=== PATIENT | female | born 2000 | race Caucasian/White ===

== ENCOUNTER → 2022-04-12 | Outpatient (CLI) | payer OTHER, SELFPAY ==
[2022-04-18 22:47] LABS: HPV Reflexed? NOT INDICATED
== END | disposition home or self-care (01) ==
LOC: LABSPEC 14:25
PROVIDERS: PCP Pediatrics; Visit Provider Obstetrics & Gynecology
DX: Z12.4 Encounter for screening for malignant neoplasm of cervix (principal)
CPT/HCPCS: 88175; G0145

== ENCOUNTER 2023-10-04 02:06 | Emergency (ER) | payer OTHER, SELFPAY ==
[2023-10-04 02:06] VITALS: BP 110/68; PULSE 87; RESP 18; TEMP 36.6; O2SAT 99; BMI 27.9
[2023-10-04 02:11] VITALS: BP 110/68; PULSE 88; RESP 14; TEMP 36.6; O2SAT 99
--- NOTE | 2023-10-04 02:32 | EDS_ITS ---
HPI History of Present Illness Chief Complaint: Dizziness Informant: patient and family Narrative Narrative: Patient is a 23-year-old female with past medical history of depression and ADHD who recently was admitted to the hospital approximately 10 days ago for acute appendicitis. She states she has been doing well but 5 days ago she was stung by a insect such as a bee or hornet in the right shoulder. She states that initially it was swollen and pruritic and she was scratching at it but now its become painful. She denies any fevers or chills nausea vomiting diarrhea or dysuria or concern for . She denies any acute blood loss. She states that she have to use the bathroom this evening and felt lightheaded/dizzy and she relates this to the increasing pain in her shoulder. With concern for secondary infection she presents for evaluation [facility] Medical History Depression ADHD Tonsillectomy planned Home Medications ?Medication ?Instructions ?Recorded ?Last Taken ?Type dextroamphetamine-amphetamine 5 mg 10 mg PO DAILY 09/22/23 Unknown History tablet (Adderall) sertraline 20 mg/mL oral 20 mg PO DAILY 09/22/23 Unknown History concentrate (Zoloft) oxycodone 5 mg tablet 5 - 10 mg (1 - 2 x 5 mg) PO Q4H 09/23/23 Unknown Rx PRN PRN Pain Score 4-10 5 days #20 tabs amoxicillin 875 mg-potassium 1 tab PO BID 7 days #14 tabs 10/04/23 Unknown Rx clavulanate 125 mg tablet drospirenone 3 mg-ethinyl 1 tab PO DAILY 10/04/23 Unknown History estradiol 0.02 mg tablet (JOSE E (28)) Allergy/AdvReac Type Severity Reaction Status Date / Time No Known Allergies Allergy Verified 10/04/23 02:06 Surgical History (Updated 09/22/23 @ 16:[address] Silvio Au MD) S/P right knee arthroscopy History of tonsillectomy Social History Smoking Status: Never smoker ROS ROS ED Constitutional Constitutional ED: Denies chills or fever(s) ENT ENT ED: Denies sore throat Cardiovascular Cardiovascular: Reports other Details: Positive dizziness/near syncope ; Denies chest pain Respiratory/Chest Respiratory/Chest: Denies cough or dyspnea Gastrointestinal Gastrointestinal: Denies abdominal pain, diarrhea, nausea or vomiting Genitourinary Genitourinary ED: Denies dysuria Musculoskeletal Musculoskeletal: Reports other Details: Positive right shoulder pain Integumentary Reports abscess Neurologic Neurologic: Denies headache(s) Hematologic/Lymphatic Hematologic/Lymphatic: Denies easy bleeding or easy bruising Allergic/Immunologic Allergic/Immunologic ED: Denies urticaria EXAM Physical Exam Const Vital Signs: 10/04/23 02:06 10/04/23 02:11 10/04/23 03:11 Temperature 97.9 F 97.9 F 97.9 F Temperature Source Temporal Temporal Temporal Pulse Rate 87 88 74 Respiratory Rate 18 14 16 Blood Pressure 110/68 110/68 111/65 Blood Pressure Mean 82 82 80 Pulse Ox 99 99 100 Oxygen Delivery Method Room Air Room Air Room Air Positive well nourished and well developed General Appearance ED: well developed HEENT Reports dry mucous membranes HEENT Narrative: Mucous membranes are dry and tacky without tongue or lip swelling oral lesions airway edema or compromise No secondary changes in the posterior pharynx to suggest infection Mouth ED: Yes dry mucous membranes Mouth: dry mucous membranes Eyes PERRL and EOMs intact bilaterally General Eye ED: Negative for pale conjunctiva or scleral icterus Neck supple Neck Narrative: No nuchal rigidity or meningeal signs noted Resp normal respiratory effort and clear to auscultation bilaterally Cardio regular rate and regular rhythm Rate: other Other Details: Heart is regular rate and rhythm without murmurs rubs or gallop Radial and carotid pulses are equal and symmetric No ectopy noted GI non-tender and non-distended GI Narrative: Abdomen is soft nontender nondistended with hypoactive bowel sounds Patient has incisions secondary to her previous surgery that are clean dry and intact without secondary changes to suggest infection. Auscultation: hypoactive bowel sounds Palpation: soft Extremity normal to inspection Extremity Narrative: No asymmetric edema no pitting edema negative Homans' sign bilaterally Neuro oriented x3, CN's II-XII intact bilaterally and no sensory deficits noted Neuro Narrative: Cranial nerves II through XII are grossly intact there are no focal neurologic deficits No pronator drift no dysmetria no truncal ataxia NIH stroke scale score of 0 Sensorium / Orientation: alert Motor Exam: strength 5/5 throughout Psych mental status grossly normal Skin Skin Narrative: Patient has asymmetric erythema and warmth to the upper posterior section of her right shoulder. This area encompasses roughly 2 x 3 cm. In the center there is a small 1-1/2 cm circular region that is raised and indurated concerning for developing abscess. No active discharge or drainage or lymphangitic streaking noted. MDM MDM MDM Narrative Medical decision making narrative: Patient arrived to the ER with stable vitals. She reported a lightheadedness/near syncopal event when getting up to use the bathroom but ported it was secondary to pain. Differential diagnosis is for orthostatic hypotension versus cardiac dysrhythmia versus electrolyte abnormality versus acute blood loss anemia versus acute kidney injury. Physical exam shows abscess with cellulitis of the right shoulder region. In order to ensure there are no signs of systemic infection and that there are no other causes for the patient's near syncopal event basic laboratory studies were obtained. Patient's white count is elevated but otherwise her no clinically significant finding. Therefore this time with stable vitals and only elevation to her white count she does not meet septic criteria. Patient does not require inpatient treatment and to be given 1 dose of IV antibiotics and placed on oral antibiotics for home. The abscess was incised and drained as document below and following this patient is otherwise safe for discharge Patient had the right shoulder cleaned with chlorhexidine. It was anesthetized with 8 mL of 2% lidocaine with epinephrine and local fashion. A #11 blade was used to make a 1 cm incision over top the area of induration. A moderate amount of blood and purulent material was expressed. Loculations were dissected with a needle connolly. The wound was copiously irrigated with normal saline. Then half-inch iodoform gauze was packed into the wound. Patient tolerated the procedure well without complication History & Record Review Discussion w/independent historian: Patient and Family Lab Data Attestation: I reviewed the patient's lab results. Labs: Laboratory Results - last 24 hr 10/04/23 02:55 WBC 13.4 H RBC 4.43 Hgb 12.5 Hct 39.0 MCV 88.0 MCH 28.2 MCHC 32.1 RDW Std Deviation 41.1 RDW Coeff of Angel 12.7 Plt Count 295 MPV 9.5 Immature Gran % (Auto) 0.300 Neut % (Auto) 66.9 Lymph % (Auto) 25.1 Frio % (Auto) 5.7 Eos % (Auto) 1.5 Baso % (Auto) 0.5 Absolute Neuts (auto) 8.9 H Absolute Lymphs (auto) 3.35 Nucleated RBC % 0 Sodium 139 Potassium 4.1 Chloride 107 Carbon Dioxide 25.0 Anion Gap 7 BUN 13 Creatinine 0.90 Estim Creat Clear Calc 90.03 Est GFR (MDRD) Af Amer 99 Est GFR (MDRD) Non-Af 82 BUN/Creatinine Ratio 14.4 Glucose 115 H Calcium 9.1 Magnesium 1.9 Discharge Plan Triage Chief Complaint: Dizziness ED Provider: Louis Rose Dx/Rx/DC Orders Clinical Impression: Abscess, Cellulitis, ADHD, Depression Instructions: ED Abscess Incision And Drainage, ED Cellulitis Prescriptions: New amoxicillin-pot clavulanate 875-125 mg tablet 1 tab PO BID 7 Days Qty: 14 0RF No Action dextroamphetamine-amphetamine [Adderall] 5 mg tablet 10 mg PO DAILY sertraline [Zoloft] 20 mg/mL concentrate 20 mg PO DAILY oxycodone 5 mg Tablet 5 - 10 mg PO Q4H PRN PRN (Reason: Pain Score 4-10) 5 Days Qty: 20 0RF drospirenone-ethinyl estradiol [JOSE E (28)] 3-0.02 mg tablet 1 tab PO DAILY Primary Care Provider: Rosanna Granda NP Referrals: Rosanna Granda NP, PHOTO TECHNOLOGIST-C [Primary Care Provider] - Activity Restrictions/Additional Instructions: Please take your antibiotic as directed to resolve any remaining infection. Remove the packing in 48 to 72 hours. Please return to the ER should you have any further concerns or worsening of symptoms Print Language: Luxembourgish Disposition Disposition: Home, Self Care
[2023-10-04] MEDS: 0.9% Normal Saline (1000mL) 1,000 ML 999 ML IV (02:48)
[2023-10-04] MEDS: Piperacil/Tazobactam 3.375 GM in 0.9% Normal Saline (50mL MB+) 50 ML IV (02:48)
[2023-10-04] MEDS: Ondansetron 4 MG/2 ML Vial IV (02:48)
[2023-10-04] MEDS: Morphine 4 MG/ML Syringe IV (02:48)
[2023-10-04 03:01] LABS: Absolute Lymphocyte Count 3.35 X10^3/uL (0.83-4.51); Absolute Neutrophil Count 8.9 X10^3/uL (2.0-7.7); Basophil# 0.07 X10^3/uL; Basophil% 0.5 % (0-1); Eosinophils% 1.5 % (0-5); Hemoglobin 12.5 g/dL (12.0-15.0); Lymphocyte # 3.35 X10^3/ul (0.83-4.51); Lymphocyte % 25.1 % (19-41); Mean Corp Hgb Conc 32.1 g/dL (32-36); Mean Corpuscular Hgb 28.2 pg (27.0-32.0); Mean Platelet Vol. 9.5 fl (6.2-12.0); Monocyte# 0.76 X10^3/uL; Monocyte% 5.7 % (0-10); NRBC Flagged by Analyzer 0 % (0-5); Neutrophil # 8.94 X10^3/uL (2.7-7.7); Neutrophil % 66.9 % (47-70); Platelet Count 295 K/mm3 (150-450); RBC Distribution Width CV 12.7 % (11.6-14.6); RBC Distribution Width SD 41.1 fl (35.1-43.9); Red Blood Count 4.43 M/mm3 (4.2-5.4); White Blood Count 13.4 K/mm3 (4.4-11.0)
[2023-10-04 03:11] VITALS: BP 111/65; PULSE 74; RESP 16; TEMP 36.6; O2SAT 100
[2023-10-04 03:14] LABS: Anion Gap 7 (5-15); BUN 13 mg/dL (7-18); BUN/Creat Ratio 14.4 RATIO (10-20); Calcium,Total 9.1 mg/dL (8.5-10.1); Chloride 107 mmol/L (98-107); EST Glomerular Filtration Rate 82 mL/min (>60); Est Glom Filt Rate - Afr Amer 99 mL/min (>60); Estimated Creatinine Clearance 90.03 ml/min; Glucose 115 mg/dL (74-106); Magnesium 1.9 mg/dL (1.6-2.6); Potassium 4.1 mmol/L (3.5-5.1); Sodium Level 139 mmol/L (136-145)
[2023-10-04 04:00] VITALS: BP 106/63; PULSE 83; RESP 18; TEMP 36.7; O2SAT 100
[2023-10-04 04:24] VITALS: BP 106/63; PULSE 83; RESP 18; TEMP 36.7; O2SAT 100
== END 2023-10-04 04:26 | disposition home or self-care (01) ==
PROVIDERS: Emergency Provider Emergency Medicine; PCP Nurse Practitioner Family; Visit Provider Emergency Medicine
DX: L02.413 Cutaneous abscess of right upper limb (principal); L03.113 Cellulitis of right upper limb; F32.A Depression, unspecified; F90.9 Attention-deficit hyperactivity disorder, unspecified type; Z79.899 Other long term (current) drug therapy
CPT/HCPCS: 80048; 83735; 85025; 96365; 96375; 96376; 99284; J7030; A4216; J2405

== ENCOUNTER → 2023-10-07 | Outpatient (CLI) | payer OTHER, SELFPAY | END | disposition home or self-care (01) | PROVIDERS: PCP Pediatrics; Referring Provider Surgery; Visit Provider Surgery | DX: L02.413 Cutaneous abscess of right upper limb (principal) | CPT/HCPCS: 87070; 87075; 87077; 87186; 87205 ==

== ENCOUNTER → 2023-10-14 | Outpatient (CLI) | payer OTHER, SELFPAY ==
--- NOTE | 2023-10-14 07:49 | CT_ITS ---
EXAM: CT RIGHT UPPER EXTREMITY WITH INTRAVENOUS CONTRAST, SHOULDER CLINICAL INDICATION: right shoulder swelling and pain -- special attention bee sting R post shoulder TECHNIQUE: Helically acquired images were obtained of the right shoulder with intravenous contrast. 2-D reformats were performed by the technologist. CTDIvol = ( 25.27 ) mGy, DLP = ( 620.53 ) mGycm This CT exam was performed using one or more of the following dose reduction techniques: automated exposure control, adjustment of the mA and/or kV according to patient size, and/or use of iterative reconstruction technique. CONTRAST: IV 100mL Isovue-370 COMPARISON: No relevant prior studies available. FINDINGS: BONES/JOINTS: Joint spaces are maintained. No acute or healing fracture or malalignment. No unusual lytic or sclerotic lesions of bone. SOFT TISSUES: Focal soft tissue defect along the dorsal aspect of the trapezius region. Adjacent of subcutaneous edema may be reactive or could represent cellulitis in the appropriate clinical setting. LYMPH NODES: Question reactive adenopathy (2 lymph nodes, the larger one measuring 7 x 6 mm) at the peripheral aspect of the right base of the neck, within the subcutaneous tissues superficial to the trapezius muscle. LUNG APICES: Visualized lungs are clear. OTHER FINDINGS: No masses or fluid collections. CT/Extremity Upper WITH Contrast IMPRESSION: 1. Focal soft tissue defect along the dorsal aspect of the trapezius region. Adjacent of subcutaneous edema may be reactive or could represent cellulitis in the appropriate clinical setting. 2. Question reactive adenopathy at the peripheral aspect of the right base of the neck. Electronically Signed: Louis Flores MD at 1:02 EDT ,
== END | disposition home or self-care (01) ==
PROVIDERS: PCP Nurse Practitioner Family; Referring Provider Surgery; Visit Provider Surgery
DX: L02.413 Cutaneous abscess of right upper limb (principal); L03.90 Cellulitis, unspecified; M25.511 Pain in right shoulder
CPT/HCPCS: 73201

== ENCOUNTER 2024-04-03 21:43 | Emergency (ER) | payer OTHER, SELFPAY ==
[2024-04-03 21:43] VITALS: BP 151/87; PULSE 105; RESP 18; TEMP 36.1; O2SAT 96; BMI 30.1
--- NOTE | 2024-04-04 00:13 | CT_ITS ---
STUDY: CT LUMBAR SPINE WITHOUT CONTRAST REASON FOR EXAM: Female, 23 years old patient with lumbar radiculopathy. RADIATION DOSAGE (If Supplied By Facility): CTDIvol = ( 17.17 ) mGy, DLP = ( 649.11 ) mGycm TECHNIQUE: The patient was scanned in a multi detector CT scanner. High resolution transaxial imaging was performed. Images were obtained from T11 to sacrum. Sagittal and coronal images were reconstructed. Individualized dose optimization techniques were used for this CT. COMPARISON: None FINDINGS: There is straightening of the normal lumbar lordosis. There is no substantial scoliosis. Normal vertebrae of the lumbar spine. There is no demonstrated compression deformity or fracture of the visualized lumbar vertebrae. L1-2: Normal endplates. Normal disc height and morphology. Normal bilateral facet joints. Normal central canal and bilateral lateral recesses. Normal bilateral intervertebral neural foramina. L2-3: Normal endplates. Normal disc height and morphology. Normal bilateral facet joints. Normal central canal and bilateral lateral recesses. Normal bilateral intervertebral neural foramina. L3-4: Normal endplates. Normal disc height and morphology. Normal bilateral facet joints. Normal central canal and bilateral lateral recesses. Normal bilateral intervertebral neural foramina. L4-5: Normal endplates. There is a moderately large broad central disc protrusion. Normal bilateral facet joints. There is moderately severe acquired central canal stenosis. Normal bilateral intervertebral neural foramina. L5-S1: Normal endplates. Normal disc height and morphology. Normal bilateral facet joints. Normal central canal and bilateral lateral recesses. Normal bilateral intervertebral neural foramina. Normal visualized paraspinous soft tissue structures. CT/Spine Lumbar without Contrast IMPRESSION: Disc protrusion at L4-5. Electronically Signed: Karine Reeves MD at 1:11 [facility] ,
[2024-04-04] MEDS: Morphine 4 MG/ML Syringe 8 MG IM (00:22)
[2024-04-04] MEDS: predniSONE 20 MG Tablet 60 MG PO (00:24)
[2024-04-04] MEDS: Ondansetron ODT 4 MG Tablet PO (00:24)
[2024-04-04] MEDS: Gabapentin 300 MG Capsule PO (00:55)
--- NOTE | 2024-04-04 01:35 | EDS_ITS ---
HPI History of Present Illness Chief Complaint: Back Informant: patient and parent Narrative Narrative: Patient is a 23-year-old female with past medical history of depression and ADHD. She states she has been having pain in her right sided sciatic region for the past month. However she fell recently and has had increasing pain since that time. She denies any loss of bowel or bladder control or IV drug use. She denies any recent surgical procedures or injection. She states she was seen in urgent care and given muscle relaxers but despite taking those the pain has persisted and therefore she comes in for evaluation [facility] Medical History (Updated 04/11/24 @ 06:[address] Louis Rose, DO) Right shoulder pain Depression ADHD Tonsillectomy planned Home Medications ?Medication ?Instructions ?Recorded ?Last Taken ?Type dextroamphetamine-amphetamine 5 mg 10 mg PO DAILY 09/22/23 Unknown History tablet (Adderall) sertraline 20 mg/mL oral 20 mg PO DAILY 09/22/23 Unknown History concentrate (Zoloft) drospirenone 3 mg-ethinyl 1 tab PO DAILY 10/04/23 Unknown History estradiol 0.02 mg tablet (JOSE E (28)) fluoxetine 10 mg capsule 10 mg PO DAILY 04/03/24 Unknown History prednisone 20 mg tablet 20 mg PO BID 04/03/24 Unknown History gabapentin 300 mg capsule 300 mg PO TID 30 days #90 caps 04/04/24 Unknown Rx oxycodone-acetaminophen 5 mg-325 1 tab PO Q6H PRN pain 5 days #20 04/04/24 Unknown Rx mg tablet (Percocet) tabs Allergy/AdvReac Type Severity Reaction Status Date / Time No Known Allergies Allergy Verified 04/03/24 21:43 Surgical History (Updated 10/14/23 @ 13:20 by Olga Sebastian) S/P right knee arthroscopy History of tonsillectomy Social History (System 10/14/23 @ 13:20 by Olga Sebastian) Smoking Status: Never smoker ROS ROS ED Constitutional Constitutional ED: Denies chills or fever(s) ENT ENT ED: Denies sore throat Cardiovascular Cardiovascular: Denies chest pain Respiratory/Chest Respiratory/Chest: Denies cough or dyspnea Gastrointestinal Gastrointestinal: Denies abdominal pain, diarrhea, nausea or vomiting Genitourinary Genitourinary ED: Denies dysuria, hematuria or urinary frequency Musculoskeletal Musculoskeletal: Reports back pain and other Details: Positive right leg pain Integumentary Denies rash Neurologic Neurologic: Reports paresthesias; Denies headache(s) Hematologic/Lymphatic Hematologic/Lymphatic: Denies easy bleeding or easy bruising EXAM Physical Exam Const Vital Signs: 04/03/24 21:43 Temperature 97 F L Temperature Source Temporal Pulse Rate 105 H Respiratory Rate 18 Blood Pressure 151/87 H Blood Pressure Mean 108 Pulse Ox 96 Oxygen Delivery Method Room Air Positive well nourished and well developed General Appearance ED: well developed; Negative for pallor HEENT HEENT Narrative: Normocephalic atraumatic Eyes PERRL and EOMs intact bilaterally General Eye ED: Negative for scleral icterus Neck supple Resp normal respiratory effort and clear to auscultation bilaterally Cardio regular rate and regular rhythm GI normal to inspection, nondistended, normoactive bowel sounds, non-tender, non- distended and no masses Auscultation: normoactive bowel sounds Palpation: soft Back/Spine Back/Spine Narrative: No bony deformity or step-off of the thoracic or lumbar spine. There is mild midline pain on palpation over top to lower lumbar region No saddle anesthesia. No clonus or Babinski. There is mild decrease in the right patellar reflex compared to the left. Straight leg raise on right is positive around 50 degrees. Extremity normal to inspection Extremity Narrative: No asymmetric edema no pitting edema negative Homans' sign bilaterally Neuro oriented x3, CN's II-XII intact bilaterally and no sensory deficits noted Sensorium / Orientation: alert Psych mental status grossly normal Skin no rashes or lesions noted and no wounds Skin Narrative: No overlying soft tissue changes to suggest trauma or infection General Skin Exam: Negative for jaundice or pallor MDM MDM MDM Narrative Medical decision making narrative: Patient arrived to the ER hypertensive but otherwise with stable vitals. She reported persistent right leg pain for the last month that worsened after a f all. There is concern for spinal stenosis versus herniated disc versus compression fracture versus spondylolisthesis. Based on the prolonged nature of the patient's symptoms the fact she is slightly asymmetric reflexes and a positive straight leg raise there is high likelihood for potential nervous compression. Therefore I did like to perform a CT scan of the lumbar spine. As she does not have loss of bowel or bladder control I have low concern for cauda equina and without report of IV drug use there is low concern for epidural abscess. Also as she has had no recent surgical procedures or injections there is low risk for discitis. Therefore I feel no need for laboratory studies. The patient CT scan does show disc protrusion at L4-L5 with moderate thecal sac compression which would correlate with her history and exam. At this time she has had improvement of pain with provided medication. As she remains neurovascularly intact and she does not have signs of secondary infection or a unstable fracture such as a burst fracture there is no need for emergent orthopedic/neurosurgery evaluation and she can follow-up as an outpatient History & Record Review Discussion w/independent historian: Patient Radiography Diagnostic Testing: Clinical Impression(s) from Imaging Studies Lumbar Spine CT 04/04/24 00:13 IMPRESSION: Disc protrusion at L4-5. Electronically Signed: Karine Reeves MD at 1:11 EST Reading Location ID and State: [facility] / [place] , Service support , Discharge Plan Triage Chief Complaint: Back ED Provider: Louis Rose Dx/Rx/DC Orders Clinical Impression: Acute lumbar radiculopathy, Bulging lumbar disc, ADHD Instructions: Understanding Lumbar Radiculopathy Prescriptions: New gabapentin 300 mg capsule 300 mg PO TID 30 Days Qty: 90 0RF oxycodone-acetaminophen [Percocet] 5-325 mg tablet 1 tab PO Q6H PRN (Reason: pain) 5 Days Qty: 20 0RF No Action prednisone 20 mg tablet 20 mg PO BID fluoxetine 10 mg capsule 10 mg PO DAILY dextroamphetamine-amphetamine [Adderall] 5 mg tablet 10 mg PO DAILY sertraline [Zoloft] 20 mg/mL concentrate 20 mg PO DAILY drospirenone-ethinyl estradiol [JOSE E (28)] 3-0.02 mg tablet 1 tab PO DAILY Primary Care Provider: Rosanna Granda NP Referrals: Greg Patino MD [Med Staff - Active Staff] - Rosanna Granda NP, MAPPING SPECIALIST-C [Primary Care Provider] - Print Language: Hong Konger Disposition Disposition: Home, Self Care Discharge Date/Time: 04/04/24 02:06
[2024-04-04 01:43] VITALS: PULSE 70; RESP 16; O2SAT 98
[2024-04-04] MEDS: oxyCODONE 5 MG Tablet 10 MG PO (02:02)
[2024-04-04 02:04] VITALS: BP 151/87; PULSE 70; RESP 16; TEMP 36.1; O2SAT 98
== END 2024-04-04 02:06 | disposition home or self-care (01) ==
PROVIDERS: Emergency Provider Emergency Medicine; PCP Nurse Practitioner Family; Visit Provider Emergency Medicine
DX: M51.16 Intervertebral disc disorders with radiculopathy, lumbar region (principal); F32.A Depression, unspecified; F90.9 Attention-deficit hyperactivity disorder, unspecified type; Z79.899 Other long term (current) drug therapy
CPT/HCPCS: 72131; 96372; 99282

== ENCOUNTER → 2024-05-08 | Outpatient (CLI) | payer OTHER, SELFPAY ==
--- NOTE | 2024-05-08 07:42 | MRI_ITS ---
PROCEDURE: MRI SPINE LUMBAR (ROUTINE) REASON FOR EXAM: Fall. Pain. Right leg numbness. TECHNIQUE: Noncontrast lumbar spine MRI. COMPARISON: CT lumbar spine report from 04/04/2024. FINDINGS: Lumbar vertebral bodies maintain a normal height. There is straightening of the normal lordotic curvature. There is diminished signal intensity involving the discs from T11 to L2 and from L4 to S1 related to degenerative disc disease. Multilevel Schmorl's nodes are identified. Multilevel mild disc space narrowing is present. No acute fracture or subluxation is identified. The tip of the conus medullaris terminates at L1 and signal intensity of the included spinal cord is within normal limits. Paraspinous musculature is unremarkable. Individual levels: L1-L2: There is a small left central disc extrusion with mild superior migration superimposed on a mild disc bulge results in mild flattening of the left ventral thecal sac with no significant central canal stenosis or neural foraminal narrowing. L2-L3: No disc herniation, central canal stenosis, or neural foraminal narrowing. L3-L4: No disc herniation, central canal stenosis, or neural foraminal narrowing. L4-L5: There is a central/left central disc protrusion measuring proximally 11 x 4 mm in the transverse and AP dimensions respectively which results in mass effect on the ventral thecal sac with moderate central canal stenosis. Facet/flavum hypertrophy is identified. No significant neural foraminal narrowing. L5-S1: Central disc extrusion with mild inferior migration results in abutment of the ventral thecal sac with mild central canal stenosis. There is a superimposed disc bulge with mild bilateral neural foraminal narrowing. MRI/Spine Lumbar (Routine) IMPRESSION: Multilevel degenerative disc disease and spondylosis with disc protrusion/extru sions as above with moderate central canal stenosis at L4-L5 and mild central canal stenosis at L5-S1. Mild bilateral darren ral foraminal narrowing is present at L5-S1. Reading Location: [facility]
== END | disposition home or self-care (01) ==
LOC: MRI 07:38
PROVIDERS: PCP Nurse Practitioner Family; Referring Provider Orthopaedic Surgery Orthopaedic Surgery of the Spine; Visit Provider Orthopaedic Surgery Orthopaedic Surgery of the Spine
DX: M54.16 Radiculopathy, lumbar region (principal)
CPT/HCPCS: 72148

== ENCOUNTER 2024-05-12 16:30 | Outpatient (RCR) | payer OTHER, SELFPAY ==
--- NOTE | 2024-04-27 16:53 | HP.PTEVAL_ITS ---
Patient's Visit Information Visit Information Visit Information: ANNEL GREY is a 23 year old F referred to Physical Therapy by Dr. Greg Patino MD with a diagnosis of Lumbar radiculopathy. Date of Evaluation: 04/27/24 Physical Therapist: Dio Ryan, DPT, OCS, CSCS Visit Plan Frequency: 2x /Week Duration: 4-6 Weeks Plan: 2x/week for 4-6 for Zehra bias progression of extension forces m onitorring ext ROM, R LB and leg pain centralization and comfort with rolling. PA mobs Lumbar and thoracic spine, progress to mat strength, remodelling ex and Use TEns and ice if pain is limiting her walking .Postural focus and body mechanics. IE PPU 15x every two hours, posture with towel roll and avoid sitting especially soft chair, body mechanics with avoiding bending. Subjective Subjective: I have HNP L45. Steroid injection yesterday. MRI scheduled and CATScan. Symptoms are tweaking it somehow, not sure how and ignored it and that was early February. Slipped going down stairs after [place] and landed on tailOfferpope and next day had numb R leg and hard to walk b/c of pain and numby. Urgent care that am and got steroid and muscle relaxer which helped a bit. Numbness increased and went to ER. and got catscan and referred to [facility]. Sclerosis and bulging disc on catscan. 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 Pain now is 6/10, R LB and into upper leg. used to be down back of leg before steroid injection and pinching. Numbness today is not bad. Numbness tends to be all the way down leg. using it is typically worse. Walking can make it worse. 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 Missed work only for appointments. Sleep is interrupted as she repositions often. Rolling in bed is problematic. Hobbies: Enjoys ex: decreased running and pilates due to this. Pain R LB: Pain Intensity (Out of 10): 6 Pain Intensity Range: 0 and 9 Comment: spasm, while walking after work. Objective Objective: Walks into PT I no antalgia, sits avoiding R hip WB as able. I trasnfers adn gait. [id number] 2/3 patella and achilles B sensation LE WNL to gross lgiht touch B LE strength is no myotomal problems and 3+ hips, 4 knees and 4+ ankles. Pain with R hip flexion and full LAQ. Tender PA entire Lumbar to R buttock and sacrum. Slightly in soft tissue R paraspinals and into glut. Core strength is 3+ abs and 3+ ext with pain with ext. - slump - SLR repeated PPU increased ROM and decreases pain PDM and erp. Balance/Special Test Scores Oswestry Low Back Score: 15 Goals Goal 1:: Full Lumbar ROM without hesitation or pain Goal Time Frame: 4-6 Weeks Goal 2:: Patient trasnfer rolling in bed without hesitation or pain Goal Time Frame: 4-6 Weeks Goal 3:: pain 1/10 at worst and central with a 95% improvement overall. Goal Time Frame: 4-6 Weeks Goal 4:: Sleep without interruption Goal Time Frame: 4-6 Weeks Goal 5:: i appropriat elong term management with ex, body mechanics. Goal Time Frame: 4-6 Weeks Rehabilitation Potential Physical Therapy Diagnosis: Limited ROM and pain in LB limiting comfortable funciton and activity at home. Rehabilitation Potential: Good Anticipated Interventions Patient/Client Instruction: Educate patient on: Condition and Plan of Care For the Purpose of:: To decrease pain, To increase ROM, To improve nutrient delivery to tissue, To improve muscle performance and motor function, To increase tolerance to activity/condition/position, To improve performance and independence with ADL's and To improve ability of physical actions for home/community/work/leisure Therapeutic Exercise to Include: Strength training, Postural training, Flexibilty training, Passive ROM and Active ROM For the Purpose of:: To decrease pain, To increase ROM, To improve nutrient delivery to tissue, To improve muscle performance and motor function, To increase tolerance to activity/condition/position, To improve ability of physical actions for home/community/work/leisure and To improve gait and locomo tor functions Manual Therapy Techniques to Include: Mobilization, Passive ROM and Soft tissue mobilization For the Purpose of:: To decrease pain, To increase ROM, To improve nutrient delivery to tissue, To improve muscle performance and motor function and To increase tolerance to activity/condition/position TENS: Yes Cryotherapy (ice pack, ice massage): Yes For the Purpose of:: To decrease pain, To decrease swelling/inflammation and To increase ROM Text: Thank you for the opportunity to evaluate your patient. For Medicare and Medicare HMO plans, please review the plan of care and approve it. It will need to be FAXED BACK to us at [phone] for Medicare purposes. For Medicare only, by signing this I certify the plan of care. Please let me know if there are questions or concerns regarding this plan of care. Physician Signature: Date:
--- NOTE | 2024-07-13 12:56 | HP.PT.NRP ---
Patient Information Patient Information: ANNEL GREY was seen in my office for initial evaluation on 04/27/24. The following Plan of Care was established for this patient: POC Established Initial Frequency: 2x /Week Initial Duration: 4-6 Weeks Anticipated Interventions Patient/Client Instruction: Educate patient on: Condition and Plan of Care For the Purpose of:: To decrease pain, To increase ROM, To improve nutrient delivery to tissue, To improve muscle performance and motor function, To increase tolerance to activity/condition/position, To improve performance and independence with ADL's and To improve ability of physical actions for home/community/work/leisure Therapeutic Exercise to Include: Strength training, Postural training, Flexibilty training, Passive ROM and Active ROM For the Purpose of:: To decrease pain, To increase ROM, To improve nutrient delivery to tissue, To improve muscle performance and motor function, To increase tolerance to activity/condition/position, To improve ability of physical actions for home/community/work/leisure and To improve gait and locomotor functions Manual Therapy Techniques to Include: Mobilization, Passive ROM and Soft tissue mobilization For the Purpose of:: To decrease pain, To increase ROM, To improve nutrient delivery to tissue, To improve muscle performance and motor function and To increase tolerance to activity/condition/position TENS: Yes Cryotherapy (ice pack, ice massage): Yes For the Purpose of:: To decrease pain, To decrease swelling/inflammation and To increase ROM Last Seen Last Seen: This patient was last seen in our office 05/12/24. Pertinent comments regarding their Physical therapy will appear below: Pt seen 6 visits of POC but did not attend her latest scheduled check. At this point, it has been over 2 months and I will discontinue due to nonattendance. At this point I will be discontinuing this patient from physical therapy. I would be happy to see this patient again in the future if found appropriate by the physician. Thank you! Dio Ryan, DPT, OCS, CSCS Balance/Gait/Functional tests Balance/Special Test Scores Oswestry Low Back Score: 15
== END 2024-05-12 19:00 | disposition home or self-care (01) ==
LOC: PT 16:30
PROVIDERS: PCP Nurse Practitioner Family; Referring Provider Orthopaedic Surgery Orthopaedic Surgery of the Spine; Visit Provider Orthopaedic Surgery Orthopaedic Surgery of the Spine
DX: M54.16 Radiculopathy, lumbar region (principal)
CPT/HCPCS: 97014; 97110; 97161; G0283